=== PATIENT | female | born 2000 | race Caucasian/White ===

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

== ENCOUNTER 2025-08-28 11:40 | Emergency (ER) | payer BC, OTHER ==
[~2025-08-28] VITALS: Ht 172.7 cm; Wt 89.6 kg
[2025-08-28 11:53] VITALS: TEMP 97.4
--- NOTE | 2025-08-28 11:58 | Physician Documentation ---
History of Present Illness Chief Complaint: Abdominal Pain Stated Complaint: ABD PAIN/ NAUSEA Time Seen by MD: 11:58 Primary Medical Doctor: Eric [facility] 25-year-old female presents for nausea, vomiting, abdominal pain. Has taken 5- tests. Denies fevers. Has seen primary care, is taking Zofran. This is not been helpful. Medication Reconciliation Allergies: Coded Allergies: iodine (Verified Allergy, Unknown, 08/28/25) Uncoded Allergies: SHELLFISH (Allergy, Mild, 03/25/19) Scheduled Ondansetron Hcl (Zofran), 1 TAB PO Q8H Past Medical History Past Medical History: Asthma, *PSYCH*, Anxiety, Panic Disorder Past Surgical History: no surgical history Alcohol Use: None Drug Use: none Lives with: Family Lives In: Home Occupation: employed Review of Systems ROS As stated above in the HPI, otherwise all systems are reviewed and negative. Physical Exam Vital Signs: Temperature: 97.4, Source: Temporal, Heart Rate: 108, Respiratory Rate: 18, BP: 137/87, Pulse Oximetry: 99, Weight: 89.600 Physical Exam General: Alert, no apparent distress. Neck: Full range of motion. Respiratory: Lungs clear, no respiratory distress. Chest: No accessory muscle use. Cardiovascular: Regular rate and rhythm, no murmurs. Gastrointestinal: Soft, mild diffuse TTP, nondistended. Bowels sounds present. Extremities: Normal range of motion, no deformity. Neurologic: Oriented x4. Psychiatric: Normal mood and affect. Skin: Normal color, warm and dry. No edema, no ecchymosis. Progress Progress Note [employer] Att[employer] reports normal common bile duct, no stones in the gallbladder, negative sonographic Botello's sign. Results/Orders Results/Orders Vital Signs 08/28/25 11:53 Temp 97.4 Pulse 108 Resp 18 B/P (MAP) 137/87 Pulse Ox 99 EKG/XRAY/CT/US/VASC/MRI CT : Impression [facility] [address] [facility], [facility] [address] CAT SCAN Patient: MARIAELENA HARRELL Medical Record: [id number] [facility] : 2000, Age: 25 Sex: Female Location: ER Patient Status: REG ER Service Date/Time: 08/28/25/ 1308 Ordering Physician: MARISSA DAN [employer] Exam: CT ABDOMEN PELVIS EXAM: CT CT ABDOMEN PELVIS HISTORY: abd pain with n/v TECHNIQUE: Volumetric multidetector CT images of the abdomen and pelvis were obtained after the administration of intravenous contrast. All CT scans at this facility use dose modulation, iterative reconstruction, and/or weight based dosing when appropriate to reduce radiation dose to as low as reasonably achievable. COMPARISON: US ULTRASOUND OF ABDOMEN on DOS: 08/28/25 FINDINGS: [LOWER CHEST]: The partially visualized lung bases are clear without a pleural effusion. [LIVER]: Normal hepatic size without suspicious focal lesion. [GALLBLADDER AND BILIARY TREE]: No cholelithiasis. [SPLEEN]: Unremarkable. [PANCREAS]: Unremarkable. [ADRENAL GLANDS]: Unremarkable [KIDNEYS]: No hydronephrosis. No nephroureterolithiasis. [BLADDER]: Minimal bladder wall thickening [REPRODUCTIVE ORGANS]: Unremarkable. [BOWEL/MESENTERY]: Stomach is normal. Root and ileocolic lymph nodes. No CT evidence of bowel obstruction. mild stool burden prior appendectomy. [ASCITES]: Absent [LYMPHADENOPATHY]: No pathologically enlarged lymph nodes by CT size criteria. Multiple subcentimeter likely reactive retroperitoneal, small bowel mesenteric root and ileocolic lymph nodes. [VASCULATURE]: No aneurysmal dilatation. [ABDOMINAL WALL]: Unremarkable. [MUSCULOSKELETAL]: No acute fracture or aggressive focal osseous lesion. Multifocal degenerative change of the visualized spine. IMPRESSION: 1. No CT evidence of an acute abdominal/pelvic process. 2. Multiple subcentimeter likely reactive retroperitoneal, small bowel mesenteric root and ileocolic lymph nodes. 3. Minimal bladder wall thickening. Consider correlation with urinalysis. Electronically Signed by:POLO CARTER MD Date & Time: 08/28/251553 Dictated by: POLO CARTER MD Dictation date and time: 08/28/25 4541 Primary Care Provider: NO PRIMARY CARE PROVIDER cc: MARISSA DAN [employer] ~ Ultrasound : Impression [address], [place], [facility] [address] ULTRASOUND Patient: MARIAELENA HARRELL Medical Record: [id number] [facility] : 2000, Age: 25 Sex: Female Location: ER Patient Status: [facility] ER Service Date/Time: 08/28/25/ Ordering Physician: MARISSA DAN NP Exam: ULTRASOUND OF ABDOMEN Technique: Real-time ultrasound imaging of the abdomen was performed with grayscale and color Doppler. Indication: RUQ pain Comparison: None Findings: Liver measures 17.1 cm. It is increased in echogenicity and echotexture without focal mass. Portal vein is normal in caliber and demonstrates normal hepatopetal flow. Gallbladder demonstrates no evidence for cholelithiasis. There is no pericholecystic fluid. The wall thickness is normal. The common bile duct measures 4 mm. No intrahepatic biliary ductal dilatation. The right kidney measures 9.9 cm. There is no hydronephrosis or sonographic evidence of nephrolithiasis. The visualized portion of the pancreas is unremarkable. Impression: Echogenic liver which can be seen with hepatic steatosis, cirrhosis. Hepatomegaly Electronically Signed by:ODELL CASSIDY MD Date & Time: 08/28/25 125 Dictated by: ODELL CASSIDY MD Dictation date and time: 08/28/25 125 Primary Care Provider: NO PRIMARY CARE PROVIDER cc: MARISSA DAN [employer] ~ Medical Decision Making Additional Comments 25-year-old female presented for abdominal pain, primarily right upper quadrant accompanied by nausea and vomiting. She was hydrated and given nausea medications, an ultrasound of the abdomen was obtained. Normal. Due to persis ting symptoms including pain and vomiting, CT scan was obtained. Normal other than non-specific mesenteric adenitis. Departure Time of Disposition: 15:51 Disposition: 01 HOME / SELF CARE / HOMELESS Impression: Primary Impression: Abdominal pain Additional Impression: acute nonspecific mesenteric lymphadenitis Discharge Instructions: Abdominal Pain (Nonspecific) Additional Instructions: Abdominal ultrasound showed evidence of a mildly enlarged liver. This is a nonspecific finding, usually due to fatty infiltration of the liver. Discuss with your primary care. CT scan of the abdomen showed normal findings other than multiple small lymph nodes throughout the bowel. This typically indicates viral or bacterial gastroenteritis. Your labs were all reassuringly normal. Try the new nausea medicine that was sent parent Clear liquid diet until nausea completely resolves. [id number] acetaminophen if needed for pain. Follow up with primary care. Return immediately if worse. Referrals: NO PRIMARY CARE PROVIDER (PCP) Prescriptions Prochlorperazine Maleate (Prochlorperazine Maleate) 10 Mg Tablet 1 TAB PO Q6H for 7 Days, #28 TAB 0 Refills Prov: MARISSA DAN NP 08/28/25 Education Educated: Patient Educated regarding: diagnosis, treatment, prognosis, need for follow up Signature Scribe Signature: x Attestation: The note accurately reflects work and decisions made by me.Marissa Cardenas NP 08/28/25 15:48 MARISSA DAN NP Aug 28, 2025 11:58
[2025-08-28] MEDS: ondansetron 4mg rapidly disintigrating tab PO ONE (12:07)
[2025-08-28 12:14] LABS: MEAN PLATELET VOLUME 9.1 FL (7.4-10.4); RED CELL DISTRIBUTION WIDTH 15.3 % (11.5-14.5)
[2025-08-28 12:46] LABS: CREATININE 0.56 MG/DL (0.40-0.90); TOTAL CARBON DIOXIDE 27.6 MMOL/L (24-32); eCRCL 156 ML/MIN; eGFR > 90 ML/MIN
--- NOTE | 2025-08-28 12:54 | RADIOLOGY REPORT ---
Technique: Real-time ultrasound imaging of the abdomen was performed with grayscale and color Doppler. Indication: RUQ pain Comparison: None Findings: Liver measures 17.1 cm. It is increased in echogenicity and echotexture without focal mass. Portal vein is normal in caliber and demonstrates normal hepatopetal flow. Gallbladder demonstrates no evidence for cholelithiasis. There is no pericholecystic fluid. The wall thickness is normal. The common bile duct measures 4 mm. No intrahepatic biliary ductal dilatation. The right kidney measures 9.9 cm. There is no hydronephrosis or sonographic evidence of nephrolithiasis. The visualized portion of the pancreas is unremarkable. Impression: Echogenic liver which can be seen with hepatic steatosis, cirrhosis. Hepatomegaly
[2025-08-28] MEDS: HYDROmorphone inj. 0.5 MG/0.5 ML DISP.SYRIN IV ONE (13:28)
[2025-08-28] MEDS: normal saline 1000ml 1,000 ML IV ONE (13:41)
[2025-08-28 15:04] LABS: URINE HCG NEGATIVE (NEG)
[2025-08-28 15:05] LABS: LEUKOCYTE ESTERASE ,URINE NEGATIVE (Neg); NITRITES, URINE NEGATIVE (Neg); OCCULT BLOOD,URINE NEGATIVE (Neg)
[2025-08-28 15:11] LABS: UA COLLECTION TYPE CLN CATCH MIDSTREAM
--- NOTE | 2025-08-28 15:57 | RADIOLOGY REPORT ---
EXAM: CT CT ABDOMEN PELVIS HISTORY: abd pain with n/v TECHNIQUE: Volumetric multidetector CT images of the abdomen and pelvis were obtained after the administration of intravenous contrast. All CT scans at this facility use dose modulation, iterative reconstruction, and/or weight based dosing when appropriate to reduce radiation dose to as low as reasonably achievable. COMPARISON: US ULTRASOUND OF ABDOMEN on DOS: 08/28/25 FINDINGS: [LOWER CHEST]: The partially visualized lung bases are clear without a pleural effusion. [LIVER]: Normal hepatic size without suspicious focal lesion. [GALLBLADDER AND BILIARY TREE]: No cholelithiasis. [SPLEEN]: Unremarkable. [PANCREAS]: Unremarkable. [ADRENAL GLANDS]: Unremarkable [KIDNEYS]: No hydronephrosis. No nephroureterolithiasis. [BLADDER]: Minimal bladder wall thickening [REPRODUCTIVE ORGANS]: Unremarkable. [BOWEL/MESENTERY]: Stomach is normal. Root and ileocolic lymph nodes. No CT evidence of bowel obstruction. mild stool burden prior appendectomy. [ASCITES]: Absent [LYMPHADENOPATHY]: No pathologically enlarged lymph nodes by CT size criteria. Multiple subcentimeter likely reactive retroperitoneal, small bowel mesenteric root and ileocolic lymph nodes. [VASCULATURE]: No aneurysmal dilatation. [ABDOMINAL WALL]: Unremarkable. [MUSCULOSKELETAL]: No acute fracture or aggressive focal osseous lesion. Multifocal degenerative change of the visualized spine. IMPRESSION: 1. No CT evidence of an acute abdominal/pelvic process. 2. Multiple subcentimeter likely reactive retroperitoneal, small bowel mesenteric root and ileocolic lymph nodes. 3. Minimal bladder wall thickening. Consider correlation with urinalysis.
[2025-08-28] MEDS ORDERED: PROC10TA97 PO (16:05)
[2025-08-28 16:10] VITALS: BP 118/69; PULSE 84; RESP 16; O2SAT 99
== END 2025-08-28 16:12 | disposition home or self-care (01) ==
LOC: ER 11:40
DX: I88.0 Nonspecific mesenteric lymphadenitis (principal); J45.909 Unspecified asthma, uncomplicated; F41.9 Anxiety disorder, unspecified; Z88.8 Allergy status to other drugs, medicaments and biological substances; Z79.899 Other long term (current) drug therapy
CPT/HCPCS: 36415; 74176; 76700; 80053; 81003; 81025; 83690; 85025; 96361; 96374; 96375; 99285; J0780; J1171; J1200; J7030